=== PATIENT | male | born 1975 | race Caucasian/White ===

== ENCOUNTER 2018-09-22 20:30 | Outpatient (CLI) | payer OTHER | END 2018-09-22 20:31 | disposition home or self-care (01) | LOC: SLEEPLAB 20:30 | PROVIDERS: ATTEND Internal Medicine | DX: G47.33 Obstructive sleep apnea (adult) (pediatric) (principal); I25.10 Atherosclerotic heart disease of native coronary artery without angina pectoris; E11.9 Type 2 diabetes mellitus without complications; R06.83 Snoring; G47.10 Hypersomnia, unspecified; I10 Essential (primary) hypertension; G47.00 Insomnia, unspecified; Z68.30 Body mass index [BMI] 30.0-30.9, adult | CPT/HCPCS: 95810 ==

== ENCOUNTER 2023-05-01 07:59 | Day surgery (SDC) | payer BC ==
[2023-04-23 10:27] VITALS: BMI 28.8
[2023-05-01] MEDS ORDERED: Levofloxacin 500 mg/D5W 100 ml Premix Bag ONE (09:29)
[2023-05-01] MEDS ORDERED: Fentanyl 250 MCG/5 ML VIAL ONE (09:54)
[2023-05-01] MEDS ORDERED: SUGAMMADEX SODIUM 200 MG/2 ML VIAL ONE (09:54)
[2023-05-01] MEDS ORDERED: Iopamidol 15 ML ONE (10:01)
[2023-05-01] MEDS ORDERED: Rocuronium Bromide 10 MG/ML (10ML VIAL) ONE (10:17)
[2023-05-01] MEDS ORDERED: PROPOFOL 200 MG/20 ML VIAL ONE (10:17)
[2023-05-01] MEDS ORDERED: Lidocaine 1% PF 5 ML VIAL ONE (10:17)
[2023-05-01] MEDS ORDERED: ePHEDrine Sulfate 50 MG/10 ML VIAL ONE (10:17)
[2023-05-01] MEDS ORDERED: Ondansetron PF 4 MG/2 ML Vial ONE (10:17)
[2023-05-01] MEDS ORDERED: Ketorolac Tromethamine 30 MG/ML VIAL ONE (11:09)
[2023-05-01] MEDS ORDERED: Phenazopyridine HCl 100 MG TAB ONE ×2 (11:28→11:30)
[2023-05-01] MEDS ORDERED: Tamsulosin HCl 0.4 MG CAP ONE (11:28)
== END 2023-05-01 12:00 | disposition home or self-care (01) ==
LOC: SDC 07:59
PROVIDERS: ATTEND Urology
PROC: 0TC68ZZ Extirpation of Matter from Right Ureter, Via Natural or Artificial Opening Endoscopic (ICD-10-PCS; principal; 2023-05-01)
PROC: 0T768DZ Dilation of Right Ureter with Intraluminal Device, Via Natural or Artificial Opening Endoscopic (ICD-10-PCS; principal; 2023-05-01)
DX: N20.1 Calculus of ureter (principal); R81 Glycosuria; N52.9 Male erectile dysfunction, unspecified; E78.5 Hyperlipidemia, unspecified; E11.9 Type 2 diabetes mellitus without complications; I25.10 Atherosclerotic heart disease of native coronary artery without angina pectoris; Z90.89 Acquired absence of other organs; F17.200 Nicotine dependence, unspecified, uncomplicated; Z79.899 Other long term (current) drug therapy
CPT/HCPCS: 74018; 74420; 82365; 88300; C1769; C2617; J1885; J1956; J2405; J2704; J3010; Q9967

== ENCOUNTER 2023-10-09 15:18 | Outpatient (CLI) | payer BC | END 2023-10-09 15:19 | disposition home or self-care (01) | LOC: ULT 15:18 | PROVIDERS: ATTEND Urology | DX: N20.1 Calculus of ureter (principal); Z98.890 Other specified postprocedural states | CPT/HCPCS: 76770 ==